=== PATIENT | male | born 1980 | race Caucasian/White ===

== ENCOUNTER 2020-05-14 14:00 | Outpatient (REF) | payer BC, SELFPAY ==
[2020-05-14 21:28] LABS: HCT 51.2 % (40.0-50.0); HGB 16.7 g/dL (13.5-17.5); MCHC 32.6 % (32.0-36.0); Platelet Count 242 10^3/uL (130-400); RBC 5.75 10^6/uL (4.36-5.78); RDW 13.1 % (11.8-14.1); RDW-SD 42.8 fL; WBC 7.63 10^3/uL (4.4-10.8)
[2020-05-14 21:56] LABS: ALT 51 U/L (16-63); AST 26 U/L (15-37); Alkaline Phosphatase 79 U/L (46-116); Anion Gap 7.5 mmol/L (3-11); BUN 11 mg/dL (7-18); Bilirubin, Total 0.9 mg/dL (0.2-1.0); CO2 27.5 mmol/L (21.0-32.0); CREATININE 1.15 mg/dL (0.70-1.30); Calcium 9.1 mg/dL (8.5-10.1); Calculated LDL 124 mg/dL (<100); Chloride 105 mmol/L (98-107); Cholesterol 187 mg/dL (<200); Glucose 101 mg/dL (74-106); HDL Cholesterol 46 mg/dL (40-60); Potassium 4.5 mmol/L (3.5-5.1); Sodium 140 mmol/L (136-145); Total Protein 7.6 g/dL (6.4-8.2); Triglyceride 85 mg/dL (<150)
[2020-05-18 16:42] LABS: HIV-1/2 Ag & Ab Screen Negative (Negative)
[2020-05-22 13:07] LABS: Hepatitis C Ab w Rflx HCV PCR Negative (Negative)
[2020-05-22 13:08] LABS: HBs Antibody, Quant <5.0 mIU/mL (See Note); Hepatitis B Surface Ab Negative
[2020-07-07 16:32] LABS: Syphilis Total Ab w/Reflex Nonreactive (Nonreactive)
== END 2020-05-14 14:20 ==
LOC: NCHCN 14:00
PROVIDERS: PCP Family Medicine; Visit Provider Nurse Practitioner Family
DX: Z00.00 Encounter for general adult medical examination without abnormal findings (principal); Z11.3 Encounter for screening for infections with a predominantly sexual mode of transmission
CPT/HCPCS: 80053; 80061; 85027; 86706; 86803; 87389; 86780

== ENCOUNTER 2022-08-30 10:29 | Emergency (ER) | payer MEDICAID, SELFPAY ==
[2022-08-30] VITALS (16 sets, daily range): BP systolic 115–147; BP diastolic 74–101; PULSE 62–92; RESP 10–22; TEMP 36.8; O2SAT 92–96
--- NOTE | 2022-08-30 10:30 | DI.RAD_ITS ---
Exam(s) XR CHEST 2V PA LATERAL EXAM: XR CHEST 2V PA LATERAL CLINICAL HISTORY: chest congestion TECHNIQUE: 2D digital imaging was performed of the chest. Two images were obtained. PA and lateral views were obtained. COMPARISON: No exams were available for comparison FINDINGS: MEDIASTINUM: Normal. HEART: Normal. PULMONARY VASCULATURE: Normal. LUNGS: Clear. PLEURAL SPACE: No pleural effusion or pneumothorax. BONE:Within normal limits for the patient's age. OTHER FINDINGS:Normal. IMPRESSION: No acute pulmonary findings. DATA REPOSITORY: RADIATION DOSE DELIVERED:
--- NOTE | 2022-08-30 10:44 | ED.GENADUL_ITS ---
Discharge Plan Disposition Patient Disposition: Home Discharge Details Clinical Impression: Right-sided Andujar's palsy Primary Care Provider: Melba Wooten ED Provider: Fidencio Rordiguez Home Meds and New Rx's Prescriptions: New acyclovir 400 mg Tablet See Rx Instructions .ROUTE .COMPLEX Qty: 25 0RF Rx Instructions: 400 mg orally. 5 times daily for 1 week prednisone 20 mg Tablet 60 mg PO DAILY Qty: 7 0RF polyvinyl alcohol [Artificial Tears (polyvin alc)] 1.4 % drops 1 drp ophthalmic (eye) BID-QID PRNQty: 15 0RF Continued acetaminophen 500 mg Capsule 500 mg PO QID PRN Discharge Instructions Additional Instructions: You were seen in the emergency department for your facial droop. You have no signs of a stroke on your MRI. You need to follow-up with the breaker hand. They will call you for follow-up. In the meantime for the next week please take the steroids and antiviral medications that have been sent to your pharmacy. Please make sure you tape your eye shut at night as we discussed. Please use artificial tears during the day while awake. Medical Decision Making This is a previously healthy 42-year-old male with right-sided facial paralysis with no forehead sparing most consistent with Andujar's palsy. Patient certainly has risk factors based on his elevated BMI so well obtain a dry CT scan and an MRI to ensure that he does not have an acute CVA. He is outside of the window for tPA based on his symptoms that began yesterday as noticed by his daughter. Given the duration of time since initial symptoms began I did not make the p atient a stroke alert. I am not concerned for large vessel occlusion based on no upper extremity weakness, no visual changes, no aphasia, and neglect so I did not obtain a CTA of his head or neck. He has had no tonic-clonic activity to suggest seizures and he denies tongue biting. As result I was not concerned for seizures and I did not feel that the patient required an EEG. No fevers nor neck pain to suggest meningitis. He is not altered to suggest encephalitis. As result I do not feel that the patient requires a lumbar puncture. No recent chiropractic manipulation to suggest increased risk for dissection. Will obtain a chest x-ray, and EKG, a chest x-ray given congestion and reassess. He is having no chest pain to suggest aortic dissection. Given unilateral facial palsy I considered Lyme disease however given the season we will not treat empirically with doxycycline but rather treat for Andujar's palsy if MRI is reassuring. 12:37 PM Patient's MRI was reassuring against CVA. I met with the patient and his and explained treatment for Andujar's palsy. Patient will receive first dose of prednisone and acyclovir in the emergency department. I instructed him on taping his eyes shut at night and using artificial tears during the day. I sent him a prescription for artificial tears. The health vulcanized fiber unit operator, Doug, has requested outpatient ophthalmology follow-up later this week. His chest x-ray showed no sign of pneumonia. Clinical impression: Andujar's palsy Chronic conditions affecting the care of the patient: Elevated BMI History obtained from an outside historian: Patient's External record review: Records from phone visit with primary care today Diagnostic interpretations performed by me: Per my independent interpretation chest x-ray shows: No obvious infiltrate Medications: Acyclovir and prednisone HPI General Date/Time Provider Initiated Documentation: 08/30/22 10:32 . HPI Narrative: This is a previously healthy 42-year-old male arriving to the emergency department via private vehicle in the setting of right-sided facial droop. 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 He has had some difficulty forming but not finding his words. He was going to go back to work today however his advised him to come to the emergency department. He has no history of hypertension or diabetes. He does not feel that he has any focal areas of weakness. He is having no chest pain but does have congestion in his chest for the past month with a nonadductive cough. He chews tobacco but denies routine ethanol and illicits. He takes no routine medications. He has never had a CVA in the past. Related Data Home Medications Medication Instructions Recorded Confirmed acetaminophen 500 mg capsule 500 mg PO QID PRN 08/30/22 08/30/22 acyclovir 400 mg tablet See Rx Instructions .Route 08/30/22 .COMPLEX #25 tabs polyvinyl alcohol 1.4 % eye drops 1 drp ophthalmic (eye) BID-QID PRN 08/30/22 (Artificial Tears (polyvinyl #15 mL alcohol)) prednisone 20 mg tablet 60 mg PO DAILY #7 tabs 08/30/22 Previous Rx's Medication Instructions Recorded acyclovir 400 mg tablet See Rx Instructions .Route 08/30/22 .COMPLEX #25 tabs polyvinyl alcohol 1.4 % eye drops 1 drp ophthalmic (eye) BID-QID PRN 08/30/22 (Artificial Tears (polyvinyl #15 mL alcohol)) prednisone 20 mg tablet 60 mg PO DAILY #7 tabs 08/30/22 Allergies Allergy/AdvReac Type Severity Reaction Status Date / Time No Known Allergies Allergy Unverified 08/30/22 11:20 General Stated Complaint: CVA/TIA CONSTANZA: 3 PFSH All Active Problems (Updated 08/30/22 @ 12:11 by Fidencio Rodriguez MD) Right-sided Andujar's palsy (Acute) Social History Smoking/Tobacco Use Status: Never Smoking risk assessment performed?: Yes Alcohol Intake: never Drug use: Never Substance use type: does not use Do you feel safe at home: Yes Do you feel safe in your relationship?: Yes Exam Narrative Exam Narrative: general: Well-appearing in no acute distress speaking in complete sentences. Head: Normocephalic, atraumatic Ear, nose, mouth, throat: Grossly normal inspection. Normal voice, handling secretions normally. Neck: Trachea midline. Cardiovascular: Well-perfused distal extremities. Respiratory: Nonlabored respiration. Gastrointestinal: Nondistended abdomen. Musculoskeletal: No edema. Moving all 4 extremities spontaneously. Skin: Normal for age and race, grossly normal temperature and turgor. No acute rash. Neurologic: Alert and oriented to person place and time. Patient has right- sided facial paralysis without forehead sparing. Bilateral upper extremity strength 5 out of 5. Bilateral lower extremity strength 5 out of 5. No dysmetria. No dysdiadochokinesia. GCS 15. NIH stroke scale 3 secondary to unilateral right-sided facial paralysis. Psychiatric: Mood and manner are appropriate. Grooming and personal hygiene are appropriate. Course Vital Signs Vital signs: Vital Signs Temperature 36.8 C 08/30/22 10:36 Pulse 82 08/30/22 10:36 Respiratory Rate 17 08/30/22 10:36 Blood Pressure 147/90 H 08/30/22 10:36 Pulse Oximetry 96 08/30/22 10:36 Temperature 36.8 C 08/30/22 10:36 Temperature Source Tympanic 08/30/22 10:36 Pulse 82 08/30/22 10:36 Respiratory Rate 17 08/30/22 10:36 Blood Pressure 147/90 H 08/30/22 10:36 Blood Pressure Position Sitting 08/30/22 10:36 Pulse Oximetry 96 08/30/22 10:36 Oxygen Delivery Method Room Air 08/30/22 10:36 Oxygen Flow Rate 0 08/30/22 10:36 Pain Level 0 08/30/22 10:36
--- NOTE | 2022-08-30 10:45 | DI.CT_ITS ---
Exam(s) CT HEAD - STROKE PROTOCOL EXAM: CT HEAD - STROKE PROTOCOL CLINICAL HISTORY: r facial droop. TECHNIQUE: Imaging Protocol: Axial computed tomography images with coronal and sagittal reformatted images were created and reviewed COMPARISON: No exams were available for comparison FINDINGS: Ventricles and Extra axial spaces: Normal in size and morphology for the patient's age. Hemorrhage: None. Cerebral parenchyma: Normal. Midline shift: None. Brainstem/Cerebellum: Normal. Calvarium: Normal. Visualized Paranasal sinuses/Mastoids: Clear. Soft Tissues: Unremarkable. IMPRESSION: 1. No acute intracranial process. 2. Findings were discussed with Dr. Rodriguez on 08/30/2022. RADIATION DOSE DELIVERED: 901.82mGy.cm Total DLP DATA REPOSITORY: All CT scans at this facility are submitted to the National Radiology Data Registry (NRDR) Dose Index Registry (DIR) with the [employer] ([employer]). RADIATION OPTIMIZATION: All CT scans at this facility use at least one of these dose optimization te chniques: automated exposure control; mA and/or kV adjustment per patient size (includes targeted exa ms where dose is matched to clinical indication); or iterative reconstruction.
--- NOTE | 2022-08-30 10:45 | DI.MRI_ITS ---
Exam(s) MR BRAIN WO EXAM: MR BRAIN WO CLINICAL HISTORY: right facial weakness TECHNIQUE: Multiplanar multisequence MRI of the brain was performed. COMPARISON: CT CT HEAD - STROKE PROTOCOL from 08/30/2022 FINDINGS: VENTRICLES AND EXTRA AXIAL SPACES: Normal in size and morphology for the patient's age. MIDLINE SHIFT: None. CEREBRAL PARENCHYMA: No focus of restricted diffusion to suggest acute infarct. No space-occupying le melissa identified. HEMORRHAGE: None. BRAINSTEM/CEREBELLUM: Normal. CALVARIUM: Normal. VISUALIZED PARANASAL SINUSES/MASTOIDS:Clear. [place] OF LO: Normal flow void. PITUITARY GLAND: Unremarkable. OTHER FINDINGS: None. IMPRESSION: 1. No acute abnormality. 2. Findings were discussed with Jai Frazier at 12:08 p.m. on 08/30/2022. DATA REPOSITORY:
--- NOTE | 2022-08-30 11:00 | RT.EKG_ITS ---
APPROVED REPORT Exam: Resting ECG Reason for Exam: poss CVA Patient Location: E HR:70 bpm ECG Measurements Heart Rate 70 AXIS DC 120 P 30 QRSd 85 QRS 22 QT 368 T 21 QTc 399 Conclusion Sinus rhythm...normal P axis, V-rate 60- 99 Low voltage, precordial leads...precordial leads <1.0mV Narrow complex normal sinus rhythm at a rate of 70. Normal axis. Intervals within normal limits. N o ST segment abnormalities. Normal axis. No prior for comparison. No acute injury pattern.
[2022-08-30 11:24] LABS: Abs Immature Grans 0.01 10^3/uL (0.0-0.06); Absolute Basophil Count 0.05 10^3/uL (0.0-0.2); Absolute Eosinophil Count 0.11 10^3/uL (0.0-0.7); Absolute Monocyte Count 0.48 10^3/uL (0.1-0.8); Absolute Neutrophil Count 3.76 10^3/uL (1.2-6.7); Basophils % 0.8; Eosinophils % 1.8; HCT 49.5 % (40.0-50.0); HGB 16.5 g/dL (13.5-17.5); Immature Grans % 0.2; MCH 29.2 pg (27.0-33.0); MCHC 33.3 % (32.0-36.0); MCV 88 fL (80-95); MPV 9.1 fL (8.0-11.0); Monocytes % 7.7; Neutrophils % 60.5; Platelet Count 217 10^3/uL (130-400); RBC 5.66 10^6/uL (4.36-5.78); RDW-SD 41.3 fL; WBC 6.21 10^3/uL (4.4-10.8)
[2022-08-30 11:41] LABS: ALT 72 U/L (16-63); AST 47 U/L (15-37); Albumin 3.7 g/dL (3.4-5.0); Alkaline Phosphatase 89 U/L (46-116); Anion Gap 7.4 mmol/L (3-11); BUN 11 mg/dL (7-18); Bilirubin, Total 1.6 mg/dL (0.2-1.0); CO2 29.6 mmol/L (21.0-32.0); CREATININE 1.1 mg/dL (0.70-1.30); Calcium 9.3 mg/dL (8.5-10.1); Chloride 102 mmol/L (98-107); Estimated GFR 84.89 (mL/min/1.73m2); Glucose 133 mg/dL (74-106); Potassium 4.3 mmol/L (3.5-5.1); Sodium 139 mmol/L (136-145); Total Protein 7.8 g/dL (6.4-8.2); Troponin I < 50 ng/L (<or=60)
[2022-08-30] MEDS: predniSONE 20 MG TAB 60 MG PO (12:47)
[2022-08-30] MEDS: Acyclovir 400 MG TAB PO (12:48)
== END 2022-08-30 12:55 | disposition home or self-care (01) ==
PROVIDERS: Emergency Provider Emergency Medicine; PCP Nurse Practitioner Family
DX: G51.0 Bell's palsy (principal)
CPT/HCPCS: 36415; 80053; 93005; 99284; 70450; 70551; 71046; 83735; 84484; 85025; 93010; J7512

== ENCOUNTER 2024-03-06 17:07 | Outpatient (REF) | payer BC, SELFPAY ==
[2024-03-06 21:43] LABS: ALT 44 U/L (16-63); AST 31 U/L (15-37); Albumin 3.7 g/dL (3.4-5.0); Alkaline Phosphatase 81 U/L (46-116); Anion Gap 6.4 mmol/L (3-11); BUN 17 mg/dL (7-18); Bilirubin, Total 1.57 mg/dL (0.2-1.0); CO2 26.6 mmol/L (21.0-32.0); CREATININE 1.2 mg/dL (0.70-1.30); Calcium 9.5 mg/dL (8.5-10.1); Calculated LDL 74 mg/dL (<100); Chloride 103 mmol/L (98-107); Cholesterol 158 mg/dL (<200); Glucose 106 mg/dL (74-106); HDL Cholesterol 42 mg/dL (40-60); Sodium 136 mmol/L (136-145); Total Protein 7.6 g/dL (6.4-8.2); Triglyceride 212 mg/dL (<150)
[2024-03-06 22:12] LABS: Hemoglobin A1C 5.9 % (<5.7)
== END 2024-03-06 17:08 | disposition home or self-care (01) ==
LOC: NCHCN 17:07
PROVIDERS: PCP Nurse Practitioner Family; Visit Provider Family Medicine
DX: Z00.00 Encounter for general adult medical examination without abnormal findings (principal); K76.0 Fatty (change of) liver, not elsewhere classified; Z13.220 Encounter for screening for lipoid disorders; Z13.1 Encounter for screening for diabetes mellitus
CPT/HCPCS: 80053; 80061; 83036

== ENCOUNTER 2025-01-15 17:03 | Outpatient (REF) | payer BC, SELFPAY | END 2025-01-15 17:04 | disposition home or self-care (01) | LOC: LBN 17:03 | PROVIDERS: PCP Nurse Practitioner Family; Visit Provider Nurse Practitioner Family | DX: L98.9 Disorder of the skin and subcutaneous tissue, unspecified (principal) | CPT/HCPCS: 87070; 87205 ==